=== PATIENT | male | born 1990 | race Caucasian/White ===

== ENCOUNTER 2021-02-01 22:50 | Emergency (ER) | payer SELFPAY ==
[~2021-02-01] VITALS: Ht 172.7 cm; Wt 104.3 kg
--- NOTE | 2021-02-01 23:05 | NUR ---
PATIENT [id number] C/O ETOH. PATIENT "DRANK A WHOLE BOTTLE OF DIETER LR" PER EMS. PATIENT ALWERT5 AND ORIENTED X3. AMBULATORY WITH NON LABORED BREATHING. PATIENT PLACED ON A MONITOR WITH SITTER AT BEDSIDE.
[2021-02-01] MEDS ORDERED: HALOPERIDOL LACTATE INJ 5 MG/ML VIAL ONE (23:14)
--- NOTE | 2021-02-01 23:18 | NUR ---
BS 412; RAJESH KRAUSE AWARE
[2021-02-01] MEDS: HALOPERIDOL LACTATE INJ 5 MG/ML VIAL IM ONE (23:19)
[2021-02-01] MEDS: IV NS 0.9% 1,000 ML BAG IV ONE (23:25)
--- NOTE | 2021-02-01 23:26 | NUR ---
LFA #20G S/L; PATENT AND INTACT IVF NS
[2021-02-01] MEDS ORDERED: diphenhydrAMINE HCL 50 MG/ML VIAL ONE (23:58)
[2021-02-02] MEDS: diphenhydrAMINE HCL 50 MG/ML VIAL IV ONE (00:01)
[2021-02-02] MEDS ORDERED: HALOPERIDOL LACTATE INJ 5 MG/ML VIAL ONE (02:47)
[2021-02-02] MEDS: HALOPERIDOL LACTATE INJ 5 MG/ML VIAL IM ONE (03:16)
--- NOTE | 2021-02-02 04:30 | NUR ---
pt sleeping in [facility]. no signs of distress noted. will cont to monitor pt.
--- NOTE | 2021-02-02 08:38 | NUR ---
THE PATIENT IS ALERT AND ORIENTED X4. DENIES PAIN. IN ROOM AIR AND DENIES SOB. RESPIRATION REGULAR AND UNLABORED. WILL CONTINUE TO MONITOR THE PATIENT.
[2021-02-02 08:57] VITALS: BP 123/74
--- NOTE | 2021-02-02 08:57 | NUR ---
The patient is alert and oriented x4. Denies SI/HI. Respiration regular and unlabored. Denies pain. IV removed. Catheter intact and site benign. Pressure and 4x4 applied to site. No bleeding noted.Patient discharged to home in stable condition. Written and verbal after care instructions given. Patient verbalizes understanding of instruction.
== END 2021-02-02 08:58 | disposition home or self-care (01) ==
LOC: ER 22:59
DX: F10.129 Alcohol abuse with intoxication, unspecified (principal); R73.9 Hyperglycemia, unspecified; Z60.2 Problems related to living alone; Y90.9 Presence of alcohol in blood, level not specified
CPT/HCPCS: 82962; 96361; 96372 ×2; 96374; 99285; J1200; J1630 ×2